=== PATIENT | male | born 1955 | race Caucasian/White ===

== ENCOUNTER 2023-05-11 07:14 | Outpatient (CLI) | payer OTHER | END 2023-05-11 07:17 | disposition home or self-care (01) | LOC: NUCLEAR 07:14 | PROVIDERS: ATTEND Internal Medicine | DX: I25.118 Atherosclerotic heart disease of native coronary artery with other forms of angina pectoris (principal); E78.2 Mixed hyperlipidemia | CPT/HCPCS: 78452; 93017; 93306; A9500; J0153 ==

== ENCOUNTER 2023-06-09 11:11 | Outpatient (CLI) | payer OTHER | END 2023-06-09 11:19 | disposition home or self-care (01) | LOC: NUCLEAR 11:11 | PROVIDERS: ATTEND Internal Medicine | DX: I65.29 Occlusion and stenosis of unspecified carotid artery (principal); R09.89 Other specified symptoms and signs involving the circulatory and respiratory systems; N18.6 End stage renal disease ==

== ENCOUNTER 2023-06-10 07:46 | Outpatient (CLI) | payer OTHER | END 2023-06-10 07:48 | disposition home or self-care (01) | LOC: NUCLEAR 07:46 | PROVIDERS: ATTEND Internal Medicine | DX: I80.3 Phlebitis and thrombophlebitis of lower extremities, unspecified (principal); I73.9 Peripheral vascular disease, unspecified; N18.6 End stage renal disease ==

== ENCOUNTER 2023-06-11 10:49 | Outpatient (CLI) | payer OTHER | END 2023-06-11 10:50 | disposition home or self-care (01) | LOC: NUCLEAR 10:49 | PROVIDERS: ATTEND Internal Medicine | DX: I80.3 Phlebitis and thrombophlebitis of lower extremities, unspecified (principal); I73.9 Peripheral vascular disease, unspecified; N18.6 End stage renal disease ==